=== PATIENT | male | born 1970 | race Caucasian/White ===

== ENCOUNTER 2017-08-08 16:00 | Inpatient (IN) ==
[2017-08-08 18:57] LABS: Blood Urea Nitrogen 14 mg/dl (6-20)
[2017-08-08 19:12] LABS: Basophils # (Auto) 0 K/mcL (0.0-0.3); Basophils % (Auto) 0.5 % (0.0-2.0); Eosinophils # (Auto) 0.2 K/mcL (0.0-0.7); Eosinophils % (Auto) 2.4 % (0.0-7.0); Granulocytes % (Auto) 64.9 % (38.0-78.0); Lymphocytes # (Auto) 2.1 K/mcL (1.5-4.8); Lymphocytes % (Auto) 24.3 % (15.5-49.0); Mean Cell Volume 89.8 fL (80.0-100.0); Mean Corpuscular Hemoglobin 30.5 pg (26.0-34.0); Monocytes # (Auto) 0.7 K/mcL (0.1-0.9); Monocytes % (Auto) 7.9 % (1.0-12.0); Platelet Count 198 K/mcL (140-440); RBC 5.17 M/mcL (4.50-5.90); Red Cell Distribution Width 12.7 % (11.5-14.5)
[2017-08-08 19:23] LABS: Appearance,Urine CLEAR; Bilirubin,Urine NEG (NEG); Color,Urine YELLOW; Glucose,Urine (UA) NEGATIVE (NEG); Leukocyte Esterase,Urine NEG /uL (NEG); Nitrate,Urine NEG (NEG); Protein,Urine NEG (NEG); Specific Gravity,Urine 1.012 (1.000-1.035); Urine Blood NEG mg/dL (<0.03); Urobilinogen,Urine NEG (NEG)
[2017-08-14] MEDS ORDERED: CELECOXIB 200 MG CAPSULE PO SCH ×2 (05:00→07:00)
[2017-08-14] MEDS ORDERED: oxyCODONE 10 MG TAB.ER.12H PO SCH ×2 (05:00→07:00)
[2017-08-14] MEDS ORDERED: PREGABALIN 75 MG CAPSULE PO SCH ×2 (05:00→07:00)
[2017-08-14] MEDS ORDERED: ceFAZolin 1 GM VIAL IV SCH ×2 (05:00→07:00)
[2017-08-14] MEDS ORDERED: ACETAMINOPHEN 500 MG TABLET PO SCH ×2 (05:00→07:00)
[2017-08-14] MEDS ORDERED: fentaNYL 100 MCG/2 ML VIAL IV ONE (09:05)
[2017-08-14] MEDS ORDERED: SUCCINYLCHOLINE 20 MG/ML ML IV ONE (09:05)
[2017-08-14] MEDS ORDERED: TRANEXAMIC ACID 1,000 MG/10 ML VIAL IV ONE ×2 (09:05→10:59)
[2017-08-14] MEDS ORDERED: LIDOCAINE HCL/PF 100 MG/5 ML SYRINGE IV ONE (09:05)
[2017-08-14] MEDS ORDERED: PROPOFOL 200 MG/20 ML VIAL IV ONE (09:05)
[2017-08-14] MEDS ORDERED: MIDAZOLAM 5 MG/5 ML VIAL IV ONE (09:05)
[2017-08-14] MEDS ORDERED: DEXAMETHASONE 10 MG/ML VIAL IV ONE (09:05)
[2017-08-14] MEDS ORDERED: ONDANSETRON 4 MG/2 ML VIAL IV ONE (09:05)
[2017-08-14] MEDS ORDERED: GENTAMICIN SULFATE 800 MG/20 ML VIAL IR ONE (09:29)
[2017-08-14] MEDS ORDERED: IPRATROPIUM/ALBUTEROL 3 ML AMPUL.NEB NEB PRN (10:21)
[2017-08-14] MEDS ORDERED: ePHEDrine 50 MG/ML AMPUL IV PRN (10:21)
[2017-08-14] MEDS ORDERED: PROMETHAZINE 25 MG/ML VIAL IV PRN (10:21)
[2017-08-14] MEDS ORDERED: FLUMAZENIL 0.1 MG/ML ML IV PRN (10:21)
[2017-08-14] MEDS ORDERED: BENZOCAINE/MENTHOL 1 LOZENGE PO PRN (10:21)
[2017-08-14] MEDS ORDERED: METHOCARBAMOL 1,000 MG/10 ML VIAL IV PRN (10:21)
[2017-08-14] MEDS ORDERED: NALOXONE HCL 0.4 MG/ML VIAL IV PRN (10:21)
[2017-08-14] MEDS ORDERED: ONDANSETRON 4 MG/2 ML VIAL IV PRN ×2 (10:21→10:59)
[2017-08-14] MEDS ORDERED: diphenhydrAMINE 50 MG/ML VIAL IV PRN (10:21)
[2017-08-14] MEDS ORDERED: METOPROLOL TARTRATE 5 MG/5 ML VIAL IV PRN (10:21)
[2017-08-14] MEDS ORDERED: ATROPINE SULFATE 0.4 MG/ML VIAL IV PRN (10:21)
[2017-08-14] MEDS ORDERED: ACETAMINOPHEN 1,000 MG/100 ML BOTTLE IV ONE (10:21)
[2017-08-14] MEDS ORDERED: LACTATED RINGERS 1,000 ML IV SCH (10:30)
[2017-08-14] MEDS ORDERED: TEMAZEPAM 15 MG CAPSULE PO PRN (10:59)
[2017-08-14] MEDS ORDERED: MAGNESIUM HYDROXIDE 30 ML ORAL.SUSP PO PRN (10:59)
[2017-08-14] MEDS ORDERED: BISACODYL 10 MG SUPP.RECT PR PRN (10:59)
[2017-08-14] MEDS ORDERED: FLEETS ADULT ENEMA PR PRN (10:59)
[2017-08-14] MEDS ORDERED: ACETAMINOPHEN 325 MG TABLET PO PRN (10:59)
[2017-08-14] MEDS ORDERED: POLYETHYLENE GLYCOL 3350 17 GM PACKET PO PRN (10:59)
--- NOTE | 2017-08-14 10:59 | Brief Operative Note ---
Date of procedure: 08/14/17 Pre-op diagnosis: left hip djd severe Post-op diagnosis: same Procedure: left total hip replacement Grafts/Implants: Yes Anesthesia: GETA Findings: left hip djd Complications: none Complications Description: 08/14/17 10:59 none Surgeon: Luan Waldron Dealer Development Manager: Jesus Jeff Estimated blood loss (cc): 150 Tourniquet Time (Minutes): 0 Specimens Removed/Pathology: none sent Condition: stable Disposition: PACU
[2017-08-14] MEDS: KETOROLAC 15 MG/ML VIAL IV PRN ×2 (11:32→20:06)
[2017-08-14] MEDS: fentaNYL 100 MCG/2 ML VIAL IV PRN ×4 (11:32→11:50)
[2017-08-14] MEDS: MEPERIDINE 25 MG/ML SYRINGE IV PRN ×2 (11:58→12:13)
[2017-08-14] MEDS: HYDROmorphone 2 MG/ML SYRINGE IV PRN ×2 (12:01→22:08)
[2017-08-14] MEDS: HYDROmorphone 2 MG/ML SYRINGE IV SCH ×2 (12:09→12:34)
--- NOTE | 2017-08-14 12:28 | XRay Report ---
CLINICAL INFORMATION: Postop total hip prostheses COMPARISON: Preoperative film from 11/21/2016 FINDINGS: Left total hip prostheses is anatomically aligned. Both SI and right hip joints are normal in width and alignment. No osseous abnormality. Soft tissues swelling over the surgical site seen - as expected IMPRESSION: Negative Interpreted and Authenticated by: Scott Cherry 08/14/17
--- NOTE | 2017-08-14 12:52 | Operative Note ---
DATE OF OPERATION: 08/14/2017 PREOPERATIVE DIAGNOSIS: A very pleasant 47-year-old male with left hip degenerative arthritis, severe. POSTOPERATIVE DIAGNOSIS: A very pleasant 47-year-old male with left hip degenerative arthritis, severe. PROCEDURE: Left total hip arthroplasty. SURGEON: Luan Waldron M.D. MICROBIOLOGY PROFESSOR: Jesus Jeff PA-C. ANESTHESIA: General LMA anesthesia. COMPLICATIONS: None. ESTIMATED BLOOD LOSS: About 150 mL. IMPLANTS: A 56 cementless cup from [employer] with a dual mobility liner, as well as size 4 stem left with a +4 neck length with a dual mobility ball. DESCRIPTION OF PROCEDURE: The patient was brought to the operating room and put to sleep with general LMA anesthesia. Once asleep, the patient had the left hip sterilely prepped and draped in the usual sterile fashion. Once this was done, we performed a superior posterior approach going through the muscle. We incised through the capsule and dislocated the hip. Once this was dislocated, we made our neck cut at 32 mm and subluxed the hip anteriorly. We reamed up the cup to a 55, implanted a 56 cup. We went to place one screw and the drill bit broke superiorly. This was not retrievable. At this point, we implanted the liner. There was no impingement of the liner. We then irrigated thoroughly and prepared the femur. The femur was broached up to the size 4. Two x-rays were taken to make leg lengths equal and symmetric. This was reduced and stable up to about 80 degrees of internal rotation. I repaired the posterior capsule for further repair and stability. We irrigated thoroughly, and after the final implants were in one final x-ray was taken and then repaired the capsule and the fascial layer with #1 Stratafix. Skin was closed with 2-0 Vicryl and adhesive closure. The patient tolerated this well without complication. RBH:rosario Job ID: [id number] Doc ID: [id number] Luan Waldron MD
[2017-08-14] MEDS: 0.45 % SODIUM CHLORIDE 1,000 ML IV SCH ×2 (13:08→22:53)
[2017-08-14] MEDS: HYDROcodone/APAP 10/325MG TABLET PO PRN ×3 (13:19→21:59)
[2017-08-14] MEDS: 0.9 % SODIUM CHLORIDE 10 ML SYRINGE IV SCH ×2 (13:21→22:53)
[2017-08-14] MEDS: OMEPRAZOLE 20 MG CAPSULE PO SCH (17:11)
[2017-08-14] MEDS: ceFAZolin 1 GM VIAL IV SCH (17:12)
[2017-08-14] MEDS: DOCUSATE SODIUM 100 MG CAPSULE PO SCH (20:18)
[2017-08-14] MEDS: ASPIRIN 325 MG ENTERIC COATED TABLET PO SCH (20:18)
[2017-08-14] MEDS: ATORVASTATIN 20 MG TABLET PO SCH (20:18)
[2017-08-14] MEDS: METOPROLOL TARTRATE 25 MG TABLET PO SCH (20:18)
[2017-08-14] MEDS: SENNOSIDES 1 TABLET PO SCH (20:18)
[2017-08-14] MEDS: BENZOCAINE/MENTHOL 1 LOZENGE PO PRN (20:18)
[2017-08-15] MEDS: ceFAZolin 1 GM VIAL IV SCH (01:29)
[2017-08-15] MEDS: 0.9 % SODIUM CHLORIDE 10 ML SYRINGE IV SCH ×5 (01:30→23:04)
[2017-08-15] MEDS: HYDROcodone/APAP 10/325MG TABLET PO PRN ×6 (01:55→23:03)
[2017-08-15] MEDS: KETOROLAC 15 MG/ML VIAL IV PRN ×3 (02:43→17:22)
[2017-08-15] MEDS: BENZOCAINE/MENTHOL 1 LOZENGE PO PRN ×2 (02:45→07:13)
[2017-08-15] MEDS: HYDROmorphone 2 MG/ML SYRINGE IV SCH (05:16)
--- NOTE | 2017-08-15 07:38 | Orthopedic Progress Note ---
Subjective Patient information: Note initiated : 08/15/17 at 7:37 am Service Date, if different from initiated Date: [] Patient: Daryl Beaulieu 47 y/o M admitted on 08/14/17 for Left Total Hip Arthroplasty. Chief Complaint: [Pt is stable this morning on post operative day 1 without any significant concerns or complaints. Patients vital signs have remained stable. Patients dressing is dry and exhibits a grossly intact neurovascular and neuromotor exam. Patients 10 point ROS is otherwise negative. ] Objective Vital signs: Vital Signs Temp Pulse Resp BP Pulse Ox 08/15/17 07:35 94 08/15/17 07:29 98.8 F 75 12 146/85 94 08/15/17 03:06 97.7 F 86 18 111/65 94 08/15/17 03:05 94 08/15/17 00:00 98.6 F 84 18 127/78 95 08/14/17 22:14 97 08/14/17 21:00 95 08/14/17 20:00 98.1 F 79 18 151/90 93 08/14/17 16:53 95 08/14/17 15:15 146/82 95 08/14/17 15:00 94 08/14/17 14:15 151/80 97 08/14/17 13:45 159/83 98 08/14/17 13:26 98 08/14/17 13:15 165/70 97 08/14/17 13:00 138/68 97 08/14/17 12:45 148/62 2 L 08/14/17 12:30 97.4 F 12 160/114 96 08/14/17 12:08 97.4 F 75 12 147/81 100 08/14/17 11:53 97.4 F 75 12 147/67 100 08/14/17 11:38 97.4 F 75 12 147/67 100 08/14/17 11:33 97.4 F 75 12 141/88 100 08/14/17 11:28 97.4 F 78 16 130/78 100 08/14/17 11:23 97.4 F 88 16 150/70 100 Intake and Output 08/14/17 08/15/17 08/15/17 21:59 05:59 13:59 Intake Total 1160 / 1160 1091 / 1091 800 / 800 Output Total 2700 / 2700 3550 / 3550 Balance -1540 / -1540 -2459 / -2459 800 / 800 Intake: Oral 1160 / 1160 1091 / 1091 800 / 800 Output: Void Amount 2700 / 2700 3550 / 3550 Other: Meal [place] Percent of Meal Consumed 100% Feeding Ability Independent Weight 262 lb Intake & Output: Intake & Output 08/14/17 08/15/17 08/15/17 21:59 05:59 13:59 Intake Total 1160 / 1160 1091 / 1091 800 / 800 Output Total 2700 / 2700 3550 / 3550 Balance -1540 / -1540 -2459 / -2459 800 / 800 Weight 262 lb Intake: Oral 1160 / 1160 1091 / 1091 800 / 800 Output: Void Amount 2700 / 2700 3550 / 3550 Other: Meal [place] Percent of Meal Consumed 100% Feeding Ability Independent Incision: Yes healing Incision clean and dry: Yes Weight bearing status: full Neurological exam IM: Yes oriented X3, Yes motor sensory intact, Yes neurovascular intact Extremities exam IM: Yes Foot pink and warm, Yes neurovascular intact - Labs CBC & BMP: 08/15/17 05:30 08/08/17 16:57 Labs: Orthopedic Labs 08/08/17 16:57 PT 13.7 INR 1.0 APTT 30 08/15/17 08/08/17 05:30 16:57 Hgb 15.8 Hct 37.6 L 46.4 Assessment and Plan (1) Hx of total hip arthroplasty The patient has been educated regarding dressing care, Physical Therapy recommendations, home exercises, restrictions, and follow up appointments. The patient has had all necessary DME prescribed. The patient has remained stable during their hospital course. The patient was discharge with a stable exam. Status: Acute
--- NOTE | 2017-08-15 07:41 | Discharge Summary ---
Ortho Discharge - [facility] - Patient Instructions Diet: Regular Diet Activity: activity as tolerated, weight bearing as tolerated Total Hip Protocol: Follow activity instructions as provided by Physical Therapy. Dressing Care: May shower in 2 days Patient Education: Total Hip Replacement (DC) - Problem Maintenance (1) Hx of total hip arthroplasty Status: Acute - Follow Up Plan Follow Up Appointments: Luan Waldron MD [Physician] - 08/29/17 11:20 am Disposition: Home, Self-Care Prognosis: Good Rehab Potential: Good I certify that the patient requires SNF services: No Overall status at discharge: patient is progressing back to baseline - Orders For Discharge Prescriptions: Aspirin [Ecotrin] 325 mg PO BID #60 tab.ec Docusate Sodium [Colace] 100 mg PO BID #60 cap HYDROcodone/APAP 10/325MG [[place] 10/325Mg] 1 - 2 tab PO Q4HP PRN #75 tab PRN Reason: Pain Level 3-6
[2017-08-15] MEDS: OMEPRAZOLE 20 MG CAPSULE PO SCH ×2 (07:59→17:22)
[2017-08-15] MEDS: FISH OIL 1,000 MG CAPSULE PO SCH (09:40)
[2017-08-15] MEDS: DOCUSATE SODIUM 100 MG CAPSULE PO SCH ×2 (09:41→20:28)
[2017-08-15] MEDS: lamoTRIgine 100 MG TABLET PO SCH (09:41)
[2017-08-15] MEDS: METOPROLOL TARTRATE 25 MG TABLET PO SCH ×2 (09:41→20:28)
[2017-08-15] MEDS: ASPIRIN 325 MG ENTERIC COATED TABLET PO SCH ×2 (09:41→20:28)
[2017-08-15] MEDS: ATORVASTATIN 20 MG TABLET PO SCH (20:28)
[2017-08-15] MEDS: SENNOSIDES 1 TABLET PO SCH (20:28)
[2017-08-16] MEDS: HYDROcodone/APAP 10/325MG TABLET PO PRN ×3 (03:06→11:08)
[2017-08-16] MEDS: 0.9 % SODIUM CHLORIDE 10 ML SYRINGE IV SCH (05:33)
[2017-08-16] MEDS: OMEPRAZOLE 20 MG CAPSULE PO SCH (07:16)
[2017-08-16] MEDS: FISH OIL 1,000 MG CAPSULE PO SCH (08:18)
[2017-08-16] MEDS: METOPROLOL TARTRATE 25 MG TABLET PO SCH (08:19)
[2017-08-16] MEDS: ASPIRIN 325 MG ENTERIC COATED TABLET PO SCH (08:20)
[2017-08-16] MEDS: DOCUSATE SODIUM 100 MG CAPSULE PO SCH (08:21)
[2017-08-16] MEDS: lamoTRIgine 100 MG TABLET PO SCH (08:21)
== END 2017-08-16 11:20 | disposition home or self-care (01) | DRG 470 ==
LOC: MEDSUR 08-14 06:55
PROVIDERS: ADMIT Orthopaedic Surgery; ATTEND Orthopaedic Surgery

== ENCOUNTER 2017-10-16 07:07 | Inpatient (IN) ==
[2017-10-11 13:28] LABS: Appearance,Urine CLEAR; Bilirubin,Urine NEG (NEG); Color,Urine YELLOW; Glucose,Urine (UA) NEGATIVE (NEG); Leukocyte Esterase,Urine NEG /uL (NEG); Protein,Urine NEG (NEG); Specific Gravity,Urine 1.018 (1.000-1.035); Urine Blood NEG mg/dL (<0.03); Urobilinogen,Urine NEG (NEG)
[2017-10-11 14:25] LABS: Basophils # (Auto) 0 K/mcL (0.0-0.3); Basophils % (Auto) 0.5 % (0.0-2.0); Eosinophils # (Auto) 0.3 K/mcL (0.0-0.7); Eosinophils % (Auto) 2.7 % (0.0-7.0); Granulocytes % (Auto) 64.4 % (38.0-78.0); Lymphocytes # (Auto) 2.5 K/mcL (1.5-4.8); Lymphocytes % (Auto) 25.6 % (15.5-49.0); Mean Cell Volume 86.8 fL (80.0-100.0); Mean Corpuscular Hemoglobin 28.6 pg (26.0-34.0); Monocytes # (Auto) 0.7 K/mcL (0.1-0.9); Monocytes % (Auto) 6.8 % (1.0-12.0); Platelet Count 206 K/mcL (140-440); RBC 5.51 M/mcL (4.50-5.90); Red Cell Distribution Width 14.7 % (11.5-14.5)
[2017-10-11 14:54] LABS: Blood Urea Nitrogen 13 mg/dl (6-20)
[~2017-10-16 07:07] MED LIST: ACETAMINOPHEN 500 MG TABLET PO SCH; CELECOXIB 200 MG CAPSULE PO SCH; PREGABALIN 75 MG CAPSULE PO SCH; ceFAZolin 1 GM VIAL IV SCH; oxyCODONE 10 MG TAB.ER.12H PO SCH
[2017-10-16] MEDS ORDERED: SUCCINYLCHOLINE 20 MG/ML ML IV ONE (09:15)
[2017-10-16] MEDS ORDERED: LIDOCAINE HCL/PF 100 MG/5 ML SYRINGE IV ONE (09:15)
[2017-10-16] MEDS ORDERED: ePHEDrine 50 MG/ML AMPUL IV ONE (09:15)
[2017-10-16] MEDS ORDERED: DEXAMETHASONE 10 MG/ML VIAL IV ONE (09:15)
[2017-10-16] MEDS ORDERED: ONDANSETRON 4 MG/2 ML VIAL IV ONE (09:15)
[2017-10-16] MEDS ORDERED: PHENYLEPHRINE 10 MG/ML VIAL IV ONE (09:15)
[2017-10-16] MEDS ORDERED: MIDAZOLAM 5 MG/5 ML VIAL IV ONE (09:15)
[2017-10-16] MEDS ORDERED: PROPOFOL 200 MG/20 ML VIAL IV ONE (09:15)
[2017-10-16] MEDS ORDERED: TRANEXAMIC ACID 1,000 MG/10 ML VIAL IV ONE (09:15)
[2017-10-16] MEDS ORDERED: fentaNYL 100 MCG/2 ML VIAL IV ONE ×2 (09:15→14:37)
[2017-10-16] MEDS ORDERED: KETOROLAC 30 MG, ROPIVACAINE HCL/PF 49.5 ML, EPINEPHrine 0.5 MG, 0.9 % SODIUM CHLORIDE ... IJ ONE (09:35)
[2017-10-16] MEDS ORDERED: GENTAMICIN SULFATE 800 MG/20 ML VIAL IR ONE (10:03)
[2017-10-16] MEDS ORDERED: METHOCARBAMOL 1,000 MG/10 ML VIAL IV PRN (10:44)
[2017-10-16] MEDS ORDERED: ePHEDrine 50 MG/ML AMPUL IV PRN (10:44)
[2017-10-16] MEDS ORDERED: ONDANSETRON 4 MG/2 ML VIAL IV PRN ×2 (10:44→11:10)
[2017-10-16] MEDS ORDERED: ACETAMINOPHEN 1,000 MG/100 ML BOTTLE IV ONE (10:44)
[2017-10-16] MEDS ORDERED: FLUMAZENIL 0.1 MG/ML ML IV PRN (10:44)
[2017-10-16] MEDS ORDERED: ATROPINE SULFATE 0.4 MG/ML VIAL IV PRN (10:44)
[2017-10-16] MEDS ORDERED: PROMETHAZINE 25 MG/ML VIAL IV PRN (10:44)
[2017-10-16] MEDS ORDERED: MEPERIDINE 25 MG/ML SYRINGE IV PRN (10:44)
[2017-10-16] MEDS ORDERED: METOPROLOL TARTRATE 5 MG/5 ML VIAL IV PRN (10:44)
[2017-10-16] MEDS ORDERED: diphenhydrAMINE 50 MG/ML VIAL IV PRN (10:44)
[2017-10-16] MEDS ORDERED: IPRATROPIUM/ALBUTEROL 3 ML AMPUL.NEB NEB PRN (10:44)
[2017-10-16] MEDS ORDERED: NALOXONE HCL 0.4 MG/ML VIAL IV PRN (10:44)
[2017-10-16] MEDS ORDERED: LACTATED RINGERS 1,000 ML IV SCH (10:45)
[2017-10-16] MEDS ORDERED: BISACODYL 10 MG SUPP.RECT PR PRN (11:10)
[2017-10-16] MEDS ORDERED: TRANEXAMIC ACID 1,000 MG/10 ML VIAL IV SCH (11:10)
[2017-10-16] MEDS ORDERED: FLEETS ADULT ENEMA PR PRN (11:10)
[2017-10-16] MEDS ORDERED: MAGNESIUM HYDROXIDE 30 ML ORAL.SUSP PO PRN (11:10)
[2017-10-16] MEDS ORDERED: POLYETHYLENE GLYCOL 3350 17 GM PACKET PO PRN (11:10)
[2017-10-16] MEDS ORDERED: ACETAMINOPHEN 325 MG TABLET PO PRN (11:10)
[2017-10-16] MEDS ORDERED: BENZOCAINE/MENTHOL 1 LOZENGE PO PRN (11:10)
[2017-10-16] MEDS ORDERED: ACETAMINOPHEN 500 MG TABLET PO PRN ×2 (11:14)
--- NOTE | 2017-10-16 11:17 | Brief Operative Note ---
Date of procedure: 10/16/17 Pre-op diagnosis: left hip loosened femoral cup Post-op diagnosis: same Procedure: left total hip revision Grafts/Implants: Yes Anesthesia: GETA Complications: none Surgeon: Luan Waldron Director Utilization Management: Jesus Jeff Estimated blood loss (cc): 200 Tourniquet Time (Minutes): 0 Specimens Removed/Pathology: none sent Condition: stable Disposition: PACU
[2017-10-16] MEDS: fentaNYL 100 MCG/2 ML VIAL IV PRN ×4 (11:45→12:07)
[2017-10-16] MEDS: KETOROLAC 15 MG/ML VIAL IV PRN ×2 (11:51→18:02)
[2017-10-16] MEDS: HYDROmorphone 2 MG/ML VIAL IV PRN ×5 (12:15→19:32)
[2017-10-16] MEDS ORDERED: MEPERIDINE 25 MG/ML SYRINGE IM ONE (12:25)
[2017-10-16] MEDS ORDERED: PROMETHAZINE 25 MG/ML VIAL IM ONE (12:25)
--- NOTE | 2017-10-16 12:58 | Operative Note ---
DATE OF OPERATION: 10/16/2017 PREOPERATIVE DIAGNOSIS: Left hip pain with a loose acetabular cup. POSTOPERATIVE DIAGNOSIS: Left hip pain with a loose acetabular cup. PROCEDURE: Revision of the acetabular cup. SURGEON: Luan Waldron M.D. BLIND EYELETTER: Jesus Jeff PA-C. ANESTHESIA: General LMA anesthesia. COMPLICATIONS: None. DESCRIPTION OF PROCEDURE: The patient was brought to the operating room and put to sleep with general LMA anesthesia. The left hip was sterilely prepped and draped in the usual sterile fashion and positioned in the right lateral position. Once done, we placed Ioban over the skin and made an incision through his prior scar. We dissected down through the fascial layer and placed a [place] retractor. We dislocated the hip and removed the dual mobility ball and head. We removed the dual mobility liner. We tested the stem both with impaction and tension. This did not seem to move. We then prepared the cup. The cup seemed to be the causative agent but was not grossly loose. We took an osteotome and went around the cup and then used a carbide tip punch and it came out fairly easily. There was about 10% of the cup that had bone attached, but this was not significant. We irrigated thoroughly and then reamed 2 to 3 mm deeper into the acetabulum, going up to a 56 cup. We placed a 20 mm screw. The cup was very stable, 40 degrees of inclination and 20 degrees of anteversion. We then trialed the hip. This seemed to be very stable. X-ray was taken as well. This showed it to be fairly equal in leg length. We then reduced the hip. Hip was very stable with a 4. We trialed a neutral, but the neutral was very unstable. We irrigated thoroughly. We then placed a +4 neck length ceramic ball and a dual mobility ball. Patient tolerated this well. We irrigated thoroughly and closed the fascial layer with #1 Ethibond and a Stratafix suture. The patient tolerated this well. We injected the soft tissues and closed the skin with adhesive closure. RBH:rosario Job ID: [id number] Doc ID: [id number] Luan Waldron MD
--- NOTE | 2017-10-16 13:15 | XRay Report ---
HISTORY: Reason for Exam:Post-Op Total Hip FINDINGS: There is a well-positioned left total hip prosthesis. No fracture is present and there are no abnormal calcifications around the joint. IMPRESSION: Well-positioned left hip prosthesis Interpreted and Authenticated by: Miguel Tillman 10/16/17
[2017-10-16] MEDS: HYDROcodone/APAP 10/325MG TABLET PO PRN ×3 (14:03→21:50)
[2017-10-16] MEDS: 0.9 % SODIUM CHLORIDE 10 ML SYRINGE IV SCH ×2 (14:04→21:51)
[2017-10-16] MEDS: OMEPRAZOLE 20 MG CAPSULE PO SCH (18:00)
[2017-10-16] MEDS: ceFAZolin 1 GM VIAL IV SCH (18:01)
[2017-10-16] MEDS: ATORVASTATIN 20 MG TABLET PO SCH (20:53)
[2017-10-16] MEDS: ASPIRIN 325 MG ENTERIC COATED TABLET PO SCH (20:53)
[2017-10-16] MEDS: DOCUSATE SODIUM 100 MG CAPSULE PO SCH (20:53)
[2017-10-16] MEDS: SENNOSIDES 1 TABLET PO SCH (20:54)
[2017-10-16] MEDS: METOPROLOL TARTRATE 25 MG TABLET PO SCH (20:54)
[2017-10-16] MEDS: TERAZOSIN 1 MG CAPSULE PO SCH (20:54)
[2017-10-16] MEDS ORDERED: TEMAZEPAM 15 MG CAPSULE PO PRN (21:00)
[2017-10-16] MEDS: 0.45 % SODIUM CHLORIDE 1,000 ML IV SCH ×2 (21:52→23:28)
[2017-10-17] MEDS: HYDROmorphone 2 MG/ML VIAL IV PRN ×2 (00:24→07:52)
[2017-10-17] MEDS: ceFAZolin 1 GM VIAL IV SCH (00:53)
[2017-10-17] MEDS: HYDROcodone/APAP 10/325MG TABLET PO PRN ×6 (02:01→22:05)
[2017-10-17] MEDS: KETOROLAC 15 MG/ML VIAL IV PRN ×2 (03:43→12:53)
[2017-10-17] MEDS: 0.9 % SODIUM CHLORIDE 10 ML SYRINGE IV SCH ×3 (06:09→20:39)
--- NOTE | 2017-10-17 07:40 | Orthopedic Progress Note ---
Subjective Patient information: Note initiated : 10/17/17 at 7:40 am Service Date, if different from initiated Date: [] Patient: Daryl Beaulieu 47 y/o M admitted on 10/16/17 for Left Total Hip Arthroplasty Revision. Chief Complaint: [Pt is stable this morning on post operative day 1 without any significant concerns or complaints. Patients vital signs have remained stable. Patients dressing is dry and is grossly instact from a neurovascular and motor standpoint. Patients 10 point ROS is otherwise negative. ] Objective Vital signs: Vital Signs Temp Pulse Resp BP BP Pulse Ox 10/17/17 03:04 97.5 F 81 16 127/83 95 10/17/17 02:00 95 10/17/17 00:00 98.7 F 95 H 16 126/74 96 10/16/17 23:00 96 10/16/17 20:00 98.3 F 106 H 16 129/85 97 10/16/17 19:30 97 10/16/17 17:00 97 10/16/17 16:45 105 H 12 142/83 97 10/16/17 16:10 12 10/16/17 16:00 97 10/16/17 15:50 110 H 12 140/87 10/16/17 15:20 106 H 12 142/92 97 10/16/17 15:10 12 10/16/17 15:00 97 10/16/17 14:40 99 H 10 L 146/90 10/16/17 14:10 118 H 12 162/106 98 10/16/17 13:35 86 10 L 163/100 10/16/17 13:20 101 H 151/97 99 10/16/17 13:10 99 10/16/17 13:05 96 H 10 L 148/94 10/16/17 12:50 97.2 F 96 H 143/92 98 10/16/17 12:39 98.0 F 94 H 10 L 148/76 98 10/16/17 12:01 97.8 F 102 H 15 105/59 98 10/16/17 11:41 98.2 F 101 H 15 136/81 100 10/16/17 11:26 98.0 F 116 H 18 141/85 100 10/16/17 07:50 97.5 F 18 151/89 96 Intake and Output 10/16/17 10/17/17 10/17/17 21:59 05:59 13:59 Intake Total 3181 / 3181 2230 / 2230 Output Total 3875 / 3875 3225 / 3225 Balance -694 / -694 -995 / -995 Intake: Oral 3181 / 3181 2230 / 2230 Output: Void Amount 3875 / 3875 3225 / 3225 Other: Meal Keymar Keymar Percent of Meal Consumed 100% 100% Feeding Ability Independent Independent # Voids 1 1 Weight 254 lb 8 oz Intake & Output: Intake & Output 10/16/17 10/17/17 10/17/17 21:59 05:59 13:59 Intake Total 3181 / 3181 2230 / 2230 Output Total 3875 / 3875 3225 / 3225 Balance -694 / -694 -995 / -995 Weight 254 lb 8 oz Intake: Oral 3181 / 3181 2230 / 2230 Output: Void Amount 3875 / 3875 3225 / 3225 Other: Meal Keymar Ke[place]ar Percent of Meal Consumed 100% 100% Feeding Ability Independent Independent # Voids 1 1 Incision: Yes healing Incision clean and dry: Yes Dressing: Yes clean, Yes dry Weight bearing status: as tolerated Neurological exam IM: Yes motor sensory intact, Yes neurovascular intact Extremities exam IM: Yes Foot pink and warm, Yes neurovascular intact - Labs CBC & BMP: 10/11/17 11:19 10/11/17 11:19 Labs: Orthopedic Labs 10/11/17 11:19 PT 12.8 INR 0.9 APTT 10/17/17 10/11/17 05:26 11:19 Hgb 15.8 Hct Pending 47.9 Assessment and Plan (1) Hx of total hip arthroplasty The patient has been educated regarding dressing care, Physical Therapy recommendations, home exercises, restrictions, and follow up appointments. The patient has had all necessary DME prescribed. The patient has remained stable during their hospital course. The patient was discharge with a stable exam. Status: Acute
--- NOTE | 2017-10-17 07:42 | Discharge Summary ---
Ortho Discharge - [facility] - Patient Instructions Diet: Regular Diet Activity: activity as tolerated, weight bearing as tolerated Total Hip Protocol: Follow activity instructions as provided by Physical Therapy. Dressing Care: May shower in 3 days, Aquacel Ag - leave on for 5 days - Problem Maintenance (1) Hx of total hip arthroplasty Status: Acute - Follow Up Plan Follow Up Appointments: Jesus Jeff PA-C [Physician Crystal Slicer] - 10/31/17 11:20 am Disposition: Home, Self-Care Prognosis: Good Rehab Potential: Good I certify that the patient requires SNF services: No Overall status at discharge: patient is progressing back to baseline - Orders For Discharge Prescriptions: Aspirin [Ecotrin] 325 mg PO BID #60 tab.ec Docusate Sodium [Colace] 100 mg PO BID #60 cap HYDROcodone/APAP 10/325MG [[place] 10/325Mg] 1 - 2 tab PO Q4HP PRN #75 tab PRN Reason: Pain Level 3-6
[2017-10-17] MEDS: OMEPRAZOLE 20 MG CAPSULE PO SCH ×2 (07:56→18:13)
[2017-10-17] MEDS: FISH OIL 1,000 MG CAPSULE PO SCH (10:06)
[2017-10-17] MEDS: lamoTRIgine 100 MG TABLET PO SCH (10:06)
[2017-10-17] MEDS: ASPIRIN 325 MG ENTERIC COATED TABLET PO SCH ×2 (10:06→20:40)
[2017-10-17] MEDS: DOCUSATE SODIUM 100 MG CAPSULE PO SCH ×2 (10:07→20:40)
[2017-10-17] MEDS: METOPROLOL TARTRATE 25 MG TABLET PO SCH ×2 (10:07→20:40)
--- NOTE | 2017-10-17 12:41 | Surgical Pathology Report ---
HISTOLOGY SPECIMEN MICROSCOPIC DIAGNOSIS SOFT TISSUE, LEFT HIP ACETABULAR, BIOPSY: -- FIBROVASCULAR TISSUE WITH MILD CHRONIC INFLAMMATION, FIBROSIS AND DEGENERATIVE CHANGES. -- NO ACUTE INFLAMMATION IDENTIFIED. (RLF:djf) INTRAOPERATIVE CONSULTATION FROZEN SECTION DIAGNOSIS (Performed at [facility], [place], [place]) FSA - SOFT TISSUE, ACETABULAR, BIOPSY: -- 0-1 NEUTROPHILS/hpf. (RLF:sln) GROSS DESCRIPTION Received fresh for intraoperative consultation, labeled with the patient information and A on the container and acetabular tissue on the requisition is a roman-white rubbery tissue fragment measuring 2.7 x 1.2 x 0.5 cm. Frozen section is performed. Vp Genetic sections in one cassette. (RLF:sln) Electronically Signed by: Melanie Choudhury M.D.
[2017-10-17] MEDS: 0.45 % SODIUM CHLORIDE 1,000 ML IV SCH (20:11)
[2017-10-17] MEDS: SENNOSIDES 1 TABLET PO SCH (20:40)
[2017-10-17] MEDS: ATORVASTATIN 20 MG TABLET PO SCH (20:40)
[2017-10-17] MEDS: TERAZOSIN 1 MG CAPSULE PO SCH (20:40)
[2017-10-18] MEDS: HYDROcodone/APAP 10/325MG TABLET PO PRN ×4 (01:57→14:03)
[2017-10-18] MEDS: 0.9 % SODIUM CHLORIDE 10 ML SYRINGE IV SCH ×2 (06:07→14:12)
[2017-10-18] MEDS: OMEPRAZOLE 20 MG CAPSULE PO SCH (07:10)
[2017-10-18] MEDS: lamoTRIgine 100 MG TABLET PO SCH (09:46)
[2017-10-18] MEDS: ASPIRIN 325 MG ENTERIC COATED TABLET PO SCH (09:46)
[2017-10-18] MEDS: METOPROLOL TARTRATE 25 MG TABLET PO SCH (09:46)
[2017-10-18] MEDS: FISH OIL 1,000 MG CAPSULE PO SCH (09:46)
[2017-10-18] MEDS: DOCUSATE SODIUM 100 MG CAPSULE PO SCH (09:47)
--- NOTE | 2017-10-26 10:39 | Discharge Summary ---
DATE OF ADMISSION: 10/16/2017 DATE OF DISCHARGE: 10/18/2017 ADMITTING DIAGNOSIS: Left hip pain with loose acetabular cup. DISCHARGE DIAGNOSIS: Left hip pain with loose acetabular cup with addition of revision of the acetabular cup. DISCHARGE CONDITION: Stable. CONSULTATIONS: None. PROCEDURE PERFORMED: Left total hip arthroplasty was completed on the date of admission. The procedure went without complications and there was minimal blood loss. Following the procedure the patient was taken to recovery room in stable condition. When deemed stable, was taken to the hospital floor where he rehabbed nicely and was evaluated by Orthopaedics consistently on each postoperative day, and was discharged in stable condition to home on his third postoperative day. HISTORY OF PRESENT ILLNESS: This pleasant patient has exhausted conservative care measures in the office that has included trials with anti-inflammatories, pain medications, injections and physical therapy. The patient has discussed non-operative and operative options with Dr. Waldron at length. Due to the exhausting conservative measures the patient desired to proceed forth with operative care. HOSPITAL COURSE: The patient remained stable throughout the hospital course and exhibited normal neurovascular examinations throughout the stay. The patient worked with physical therapy per standard protocols. The patient had no incidents during the hospital course. The patient also had a stable physical exam upon discharge. DISCHARGE PHYSICAL EXAMINATION: VITAL SIGNS: Stable as above. GENERAL: Patient is awake, alert and oriented x3. HEENT: Head was normocephalic. NECK: Supple, no adenopathy or thyromegaly. CHEST: CTA, no wheezing, rhonchi or rales. HEART: NSR, no gallops, rubs or murmurs. MUSCULOSKELETAL: Lower extremities revealed grossly intact motor exam. NEUROLOGIC: Deep tendon response and light touch, motor, neurosensory exam was stable. SKIN: The incision was intact and the dressing had been changed to the Acticoat dressing. There were no abnormal skin markings, lesions, erythema, rashes or other skin breakdown. DISCHARGE INSTRUCTIONS/MEDICATIONS: The patient received our standard written discharge instruction sheet. These instructions included information regarding weightbearing status, activity level, diet, wound care, physical therapy instructions, bathing restrictions, shower recommendations, follow-up guidelines, driving restrictions and monitoring the wound for signs of infection that could include but not necessarily to fevers above 101.5, sweats, chills, redness, increased pain or drainage. Should any of these occur the patient was educated to contact our office at once. The patient was restarted on normal primary care medications. Patient was also prescribed [place] 10/325 mg with instructions for 1 to 2 tabs by mouth every 4 to 6 hours as needed for pain, quantity 75 with 2 refills. The patient will be placed on 325 mg aspirin, 1 a day for 30 days post-surgery. [facility] will monitor the patient's PT/INR. FOLLOWUP: Patient will follow up at [facility] 2 weeks from surgery for a post-op wound check and staple removal. They will be able to certain follow up sooner with any problems or concerns. BAP:nelson Job ID: [id number] Doc ID: [id number] Jesus Jeff PA-C
== END 2017-10-18 15:25 | disposition home or self-care (01) | DRG 468 ==
LOC: MEDSUR 07:07
PROVIDERS: ADMIT Orthopaedic Surgery; ATTEND Orthopaedic Surgery